=== PATIENT | male | born 1985 | race Caucasian/White ===

== ENCOUNTER 2017-10-02 15:22 | Emergency (ER) | payer SELFPAY ==
[~2017-10-02] VITALS: Ht 177.8 cm; Wt 81.6 kg
--- NOTE | 2017-10-02 18:20 | NUR ---
Dr Calhoun at the bedside for MSE.
--- NOTE | 2017-10-02 19:04 | NUR ---
Patient discharged to home in stable conditon. Written and verbal after care instructions given. Patient verbalizes understanding of instructions.
[2017-10-02 19:05] VITALS: BP 133/65
== END 2017-10-02 19:09 | disposition home or self-care (01) ==
LOC: ER 15:23
DX: B00.9 Herpesviral infection, unspecified (principal)
CPT/HCPCS: 99283; A4663

== ENCOUNTER 2019-05-29 12:40 | Emergency (ER) | payer OTHER ==
[~2019-05-29] VITALS: Ht 175.3 cm; Wt 79.4 kg
[2019-05-29] MEDS ORDERED: HYDROCODONE/APAP 5-325MG TABLET ONE (13:09)
[2019-05-29] MEDS ORDERED: TDAP DIPH,PERTUSS,TET VAC/PF 0.5 ML DISP.SYRIN IM ONE ×2 (13:10→13:15)
[2019-05-29] MEDS ORDERED: HYDROCODONE/APAP 5-325MG TABLET PO ONE (13:15)
--- NOTE | 2019-05-29 14:24 | NUR ---
Patient discharged to home in stable conditon. Written and verbal after care instructions given. Patient verbalizes understanding of instructions.PT WALKS IN STEADY GAIT. PT NOT DRIVING. PT ACCOMPANIED BY SO
== END 2019-05-29 14:27 | disposition home or self-care (01) ==
LOC: ER 12:43
DX: S80.11XA Contusion of right lower leg, initial encounter (principal); S43.401A Unspecified sprain of right shoulder joint, initial encounter; V03.92XA Pedestrian on skateboard injured in collision with car, pick-up truck or van, unspecified whether traffic or nontraffic accident, initial encounter; Y93.51 Activity, roller skating (inline) and skateboarding; Y92.89 Other specified places as the place of occurrence of the external cause; Y99.8 Other external cause status
CPT/HCPCS: 73030; 73590; 90715; A4663